=== PATIENT | female | born 1960 | race Hispanic/Latino ===

== ENCOUNTER 2021-03-21 08:32 | Observation (INO) | payer BC, OTHER ==
[~2021-03-21] VITALS: Ht 165.1 cm; Wt 88.9 kg
[~2021-03-21 08:32] MED LIST: HYDROCHLOROTHIA25 MG PO; LIPITOR10 MG PO; ROPIVACAINE 246.25 MG, EPINEPHRINE HCL 1:1000 1ML 0.5 MG, CLONIDINE HCL 0.08 MG, KETORO... INJ ONE; ULTRAM 50MG50 MG PO; ZESTRIL10 MG PO
[2021-03-21] MEDS ORDERED: CELECOXIB 200 MG CAP ONE (09:33)
[2021-03-21] MEDS ORDERED: GABAPENTIN 300 MG CAP ONE (09:33)
[2021-03-21] MEDS ORDERED: DEXAMETHASONE SOD PHOS 10 MG/1 ML VIAL ONE ×2 (09:33→10:03)
[2021-03-21] MEDS ORDERED: SODIUM CHLORIDE 0.9% 50ML 100 ML ONE (09:34)
[2021-03-21] MEDS ORDERED: TURMERIC PO (10:07)
[2021-03-21] MEDS ORDERED: FISH OIL PO (10:07)
[2021-03-21] MEDS ORDERED: TRANEXAMIC ACID 1,000 MG/10 ML ML ONE ×2 (10:23→10:45)
[2021-03-21] MEDS ORDERED: Vancomycin IV 1,000 MG ONE (10:23)
[2021-03-21] MEDS ORDERED: SODIUM CHLORIDE 0.9% 500ML 500 ML ONE (10:23)
[2021-03-21] MEDS ORDERED: HYDROCODONE/APAP 5MG-325MG TAB PO PRN (12:00)
[2021-03-21] MEDS ORDERED: ONDANSETRON HCL INJ 2MG/ML 2ML 2 MG/ML VIAL IV PRN (12:00)
[2021-03-21] MEDS ORDERED: DIPHENHYDRAMINE HCL INJ 50 MG/ML VIAL IV PRN (12:00)
[2021-03-21] MEDS ORDERED: KETOROLAC TROMETHAMINE 30 MG/ML VIAL IV PRN (12:00)
[2021-03-21] MEDS ORDERED: DOCUSATE SODIUM 100 MG CAP PO PRN (12:00)
[2021-03-21] MEDS ORDERED: ACETAMINOPHEN 650 MG SUPP PR PRN (12:00)
[2021-03-21] MEDS ORDERED: METOCLOPRAMIDE HCL 10 MG/2ML VIAL ONE (12:49)
[2021-03-21 13:00] VITALS: BP 116/91
[2021-03-21 13:01] VITALS: BP 116/91
[2021-03-21 13:03] VITALS: BP 116/91
[2021-03-21] MEDS: Cefazolin 1 GM in SODIUM CHLORIDE 0.9% 50ML 50 ML IV SCH ×2 (14:53→22:00)
[2021-03-21] MEDS: SODIUM CHLORIDE 0.9% 1000ML 1,000 ML IV SCH ×2 (14:53→22:00)
[2021-03-21 15:14] VITALS: BP 106/72
[2021-03-21] MEDS: CELECOXIB 100 MG CAP PO SCH (16:44)
[2021-03-21] MEDS: ASPIRIN 325 MG TAB PO SCH (16:44)
[2021-03-21 20:00] VITALS: BP 116/70
[2021-03-21] MEDS ORDERED: ZOLPIDEM TARTRATE 5 MG TAB PO PRN (21:00)
[2021-03-22] VITALS: BP 129/89
[2021-03-22] MEDS: HYDROCODONE/APAP 7.5MG-325MG 1 EA TAB PO PRN ×2 (00:27→09:46)
[2021-03-22 04:00] VITALS: BP 123/77
[2021-03-22 05:38] LABS: HEMATOCRIT 35.4 % (34.2-44.1)
[2021-03-22] MEDS: Cefazolin 1 GM in SODIUM CHLORIDE 0.9% 50ML 50 ML IV SCH (06:07)
[2021-03-22 07:20] VITALS: BP 103/66
[2021-03-22 08:01] VITALS: BP 103/66
[2021-03-22] MEDS: CELECOXIB 100 MG CAP PO SCH (08:05)
[2021-03-22] MEDS: ASPIRIN 325 MG TAB PO SCH (08:05)
[2021-03-22] MEDS: SODIUM CHLORIDE 0.9% 1000ML 1,000 ML IV SCH (08:05)
[2021-03-22] MEDS ORDERED: HYDROCHLOROTHIAZIDE 25 MG TAB PO SCH (09:00)
[2021-03-22] MEDS ORDERED: ONDANSETRON HCL 4 MG ORAL DISINTEGRATING TAB PO PRN (10:00)
[2021-03-22 11:28] VITALS: BP 135/87
[2021-03-22] MEDS ORDERED: ACETAMINOPHEN 1000 MG/100 ML IV PRN (12:00)
[2021-03-22] MEDS ORDERED: ATORVASTATIN 40 MG TAB PO SCH (21:00)
== END 2021-03-22 12:29 | disposition home or self-care (01) ==
LOC: OR 08:32 → PACU V 11:57 → MED/SURG 12:45
PROVIDERS: ADMIT Specialist; ATTEND Specialist
DX: M16.11 Unilateral primary osteoarthritis, right hip (principal); I10 Essential (primary) hypertension; E78.5 Hyperlipidemia, unspecified; Z82.49 Family history of ischemic heart disease and other diseases of the circulatory system; Z01.812 Encounter for preprocedural laboratory examination; Z20.822 Contact with and (suspected) exposure to COVID-19
CPT/HCPCS: 27130; 36415; 72170; 85014; 85018; 86850; 86900; 86920; 97110; 97116; 97161; 97530 ×2; C1713 ×2; C1776 ×3; G0378 ×2; J0171; J0690 ×2; J1100; J1885; J2765; J2795; J3370; J7030; J7040; U0002